=== PATIENT | male | born 1960 | race Caucasian/White ===

== ENCOUNTER 2016-07-15 13:09 | Emergency (ER) | payer MEDICAID ==
[~2016-07-15] VITALS: Ht 154.9 cm; Wt 80.3 kg
[2016-07-15 13:21] VITALS: BP 150/99
== END 2016-07-15 15:36 | disposition home or self-care (01) ==
LOC: ED 15:10
DX: G56.02 Carpal tunnel syndrome, left upper limb (principal); G62.9 Polyneuropathy, unspecified; M54.9 Dorsalgia, unspecified; G89.29 Other chronic pain
CPT/HCPCS: 99283

== ENCOUNTER 2017-06-18 21:03 | Emergency (ER) | payer MEDICAID ==
[~2017-06-18] VITALS: Ht 154.9 cm; Wt 82.1 kg
[2017-06-18 21:38] VITALS: BP 180/87
[2017-06-18] MEDS ORDERED: METHOCARBAMOL 750 MG TABLET ONE (22:25)
[2017-06-18] MEDS ORDERED: METHOCARBAMOL 750 MG TABLET PO ONE (22:30)
== END 2017-06-18 23:27 | disposition home or self-care (01) ==
LOC: ED 23:26
DX: M54.32 Sciatica, left side (principal)
CPT/HCPCS: 99283

== ENCOUNTER 2019-11-15 13:10 | Emergency (ER) | payer BC, MEDICAID ==
[~2019-11-15] VITALS: Ht 154.9 cm; Wt 82.9 kg
[2019-11-15] MEDS ORDERED: KETOROLAC 30 MG/1 ML ONE (13:56)
[2019-11-15 14:00] VITALS: BP 139/82
[2019-11-15] MEDS ORDERED: KETOROLAC 30 MG/1 ML IM ONE (14:00)
== END 2019-11-15 15:16 | disposition home or self-care (01) ==
LOC: ED 14:33
DX: M25.511 Pain in right shoulder (principal)
CPT/HCPCS: 96372; 99283; J1885

== ENCOUNTER 2019-12-08 12:32 | Emergency (ER) | payer BC ==
[~2019-12-08] VITALS: Ht 154.9 cm; Wt 86.9 kg
[2019-12-08 12:34] VITALS: BP 157/78
--- NOTE | 2019-12-08 13:10 | NUR ---
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
[2019-12-08] MEDS ORDERED: KETOROLAC 30 MG/1 ML ONE (13:27)
[2019-12-08] MEDS ORDERED: DIAZEPAM 5 MG TABLET ONE (13:27)
[2019-12-08] MEDS ORDERED: KETOROLAC 30 MG/1 ML IM ONE (13:30)
[2019-12-08] MEDS ORDERED: DIAZEPAM 5 MG TABLET PO ONE (13:30)
== END 2019-12-08 14:02 | disposition home or self-care (01) ==
LOC: ED 13:38
DX: G24.3 Spasmodic torticollis (principal); M25.512 Pain in left shoulder
CPT/HCPCS: 96372; 99283; J1885

== ENCOUNTER 2020-04-16 15:10 | Inpatient (IN) | payer BC ==
[~2020-04-16] VITALS: Ht 154.9 cm; Wt 80.6 kg
[2020-04-16 16:18] LABS: PLATELET (DIC) 325 x10^3/uL (130-400)
[2020-04-16 16:19] LABS: BASOPHILS % (AUTO) 0 % (0-1); EOSINOPHILS % (AUTO) 1 % (1-7); LYMPHOCYTES % (AUTO) 23 % (22-44); MEAN CORPUSCULAR HEMOGLOBIN 30.5 pg (27.5-34.5); MEAN CORPUSCULAR HGB CONC 35.5 g/dL (33.2-36.2); MEAN PLATELET VOLUME 7.3 fL (7.4-10.4); MONOCYTES % (AUTO) 11 % (2-9); NEUTROPHILS % (AUTO) 65 % (42-75); PLATELET COUNT 321 x10^3/uL (130-400); RED BLOOD COUNT 4.97 x10^6/uL (4.38-5.82); RED CELL DISTRIBUTION WIDTH 12.5 % (9.4-14.8)
[2020-04-16 16:27] LABS: MD NO
[2020-04-16 16:30] LABS: ALANINE AMINOTRANSFERASE 44 U/L (12-78); ANION GAP 10 mmol/L (5-15); CALCIUM 8.3 mg/dL (8.5-10.1); CHLORIDE 110 mmol/L (98-107); CREATININE 0.95 mg/dL (0.7-1.3); D-DIMER (DIC) 1.33 ug/mlFEU (0.00-0.52); PTT 28 Seconds (25-31)
[2020-04-16 16:36] LABS: ALKALINE PHOSPHATASE 73 U/L (45-117); BILIRUBIN,TOTAL 0.7 mg/dL (0.2-1.0); TOTAL PROTEIN 8.2 g/dL (6.4-8.2)
[2020-04-16 16:39] LABS: FIBRINOGEN > 713 mg/dL (200-340)
[2020-04-16] MEDS ORDERED: DEXAMETHASONE 4 MG/ML, 1ML ONE (17:13)
[2020-04-16] MEDS ORDERED: CEFTRIAXONE PMX 1GM/50ML 50 ML ONE (17:13)
[2020-04-16] MEDS ORDERED: DEXAMETHASONE 4 MG/ML, 1ML IVPush ONE (17:30)
[2020-04-16] MEDS ORDERED: CEFTRIAXONE PMX 1GM/50ML 50 ML IV ONE (17:30)
--- NOTE | 2020-04-16 17:53 | NUR ---
patient arrived with sob, weakness and cough. patient reports no sig medical history. states his sig other had covid, and he was quarantining. States he feels ok, but was 88% on room air. cough.
--- NOTE | 2020-04-16 17:56 | NUR ---
Alisia don in [facility] - 04/16/20 at 1803 by NILES called x2 for report. on hold x2
--- NOTE | 2020-04-16 18:03 | NUR ---
report given sbar camden
[2020-04-16] MEDS ORDERED: OMNIPAQUE 350 MG/ML, 75ML BOTTLE ONE (19:17)
[2020-04-16 19:48] VITALS: BP 119/77
[2020-04-17] MEDS ORDERED: DOCUSATE 100 MG CAPSULE PO PRN (00:30)
[2020-04-17] MEDS ORDERED: GUAIFENESIN/DM 200-20MG, 10ML UDC PO PRN (00:30)
[2020-04-17] MEDS ORDERED: ACETAMINOPHEN 325 MG TABLET PO PRN (00:30)
[2020-04-17] MEDS ORDERED: LABETALOL 5MG/ML, 20ML IVPush PRN (00:30)
[2020-04-17] MEDS ORDERED: MELATONIN 5 MG TABLET PO PRN (00:30)
[2020-04-17] MEDS ORDERED: LIDODERM 5% PATCH TD PRN (00:30)
[2020-04-17] MEDS: ENOXAPARIN 40 MG/0.4 ML SQ SCH (00:46)
[2020-04-17 01:15] VITALS: BP 114/54
[2020-04-17] MEDS ORDERED: PHARMACY MAY ADJ FOR RENAL FX MC PRN (02:00)
[2020-04-17] MEDS ORDERED: CEFTRIAXONE PMX 1GM/50ML 50 ML IV SCH (05:30)
[2020-04-17 05:55] LABS: ALBUMIN 2.7 g/dL (3.4-5.0); ANION GAP 8 mmol/L (5-15); CALCIUM 8.5 mg/dL (8.5-10.1); CHLORIDE 109 mmol/L (98-107)
[2020-04-17 06:05] LABS: ALANINE AMINOTRANSFERASE 44 U/L (12-78); ALKALINE PHOSPHATASE 69 U/L (45-117); BILIRUBIN,TOTAL 0.5 mg/dL (0.2-1.0); CREATINE KINASE, TOTAL 133 U/L (39-308); CREATININE 0.95 mg/dL (0.7-1.3); TOTAL PROTEIN 7.9 g/dL (6.4-8.2)
[2020-04-17 07:34] VITALS: BP 134/85
[2020-04-17] MEDS: DEXAMETHASONE 4 MG/ML, 1ML IVPush SCH (09:07)
[2020-04-17] MEDS: CHOLECALCIFEROL 5,000u TAB PO SCH (09:07)
[2020-04-17] MEDS: ZINC SULFATE 220 MG CAPSULE PO SCH (09:07)
[2020-04-17] MEDS: ASCORBIC ACID 500 MG TABLET PO SCH ×2 (09:08→21:04)
[2020-04-17 11:43] VITALS: BP 130/73
[2020-04-17] MEDS ORDERED: REMDESIVIR 200 MG in SODIUM CHLORIDE 0.9% 250 ML IVPB ONE (12:00)
[2020-04-17 13:03] VITALS: BP 120/65
[2020-04-17 19:28] VITALS: BP 134/75
[2020-04-18] MEDS: ENOXAPARIN 40 MG/0.4 ML SQ SCH (00:30)
[2020-04-18 01:07] VITALS: BP 114/75
[2020-04-18 04:57] LABS: HCT (SEDRATE) 39.7 % (39.2-51.8)
[2020-04-18 05:01] LABS: BASOPHILS % (AUTO) 1 % (0-1); EOSINOPHILS % (AUTO) 0 % (1-7); LYMPHOCYTES % (AUTO) 14 % (22-44); MEAN CORPUSCULAR HEMOGLOBIN 30.1 pg (27.5-34.5); MEAN CORPUSCULAR HGB CONC 34.7 g/dL (33.2-36.2); MEAN PLATELET VOLUME 7.8 fL (7.4-10.4); MONOCYTES % (AUTO) 9 % (2-9); NEUTROPHILS % (AUTO) 76 % (42-75); PLATELET COUNT 358 x10^3/uL (130-400); RED BLOOD COUNT 4.57 x10^6/uL (4.38-5.82); RED CELL DISTRIBUTION WIDTH 12.2 % (9.4-14.8)
[2020-04-18 05:02] LABS: MD NO
[2020-04-18 05:09] LABS: ALBUMIN 2.5 g/dL (3.4-5.0); ANION GAP 10 mmol/L (5-15); CALCIUM 8.3 mg/dL (8.5-10.1); CHLORIDE 110 mmol/L (98-107)
[2020-04-18 05:11] LABS: D-DIMER 1.44 ug/mlFEU (0.00-0.52); INTERNATIONAL NORMALIZED RATIO 1.01 (0.93-1.1); PROTHROMBIN TIME 10.8 Seconds (9.6-11.5)
[2020-04-18 05:20] LABS: ALANINE AMINOTRANSFERASE 57 U/L (12-78); ALKALINE PHOSPHATASE 65 U/L (45-117); BILIRUBIN,TOTAL 0.3 mg/dL (0.2-1.0); CREATINE KINASE, TOTAL 82 U/L (39-308); CREATININE 0.78 mg/dL (0.7-1.3); TOTAL PROTEIN 7.2 g/dL (6.4-8.2)
[2020-04-18 06:57] VITALS: BP 123/76
[2020-04-18] MEDS: CHOLECALCIFEROL 5,000u TAB PO SCH (07:42)
[2020-04-18] MEDS: ASCORBIC ACID 500 MG TABLET PO SCH ×2 (07:42→21:00)
[2020-04-18] MEDS: ZINC SULFATE 220 MG CAPSULE PO SCH (07:42)
[2020-04-18] MEDS: DEXAMETHASONE 4 MG/ML, 1ML IVPush SCH (07:42)
[2020-04-18] MEDS: REMDESIVIR 100 MG in SODIUM CHLORIDE 0.9% 250 ML IVPB SCH (12:39)
[2020-04-18 13:36] VITALS: BP 117/73
[2020-04-18 20:15] VITALS: BP 135/84
[2020-04-19] MEDS: ENOXAPARIN 40 MG/0.4 ML SQ SCH (00:30)
[2020-04-19 02:15] VITALS: BP 135/78
[2020-04-19 04:59] LABS: HCT (SEDRATE) 38.4 % (39.2-51.8)
[2020-04-19 05:11] LABS: ALBUMIN 2.7 g/dL (3.4-5.0); ANION GAP 4 mmol/L (5-15); CALCIUM 8.3 mg/dL (8.5-10.1); CHLORIDE 113 mmol/L (98-107)
[2020-04-19 05:26] LABS: ALANINE AMINOTRANSFERASE 67 U/L (12-78); ALKALINE PHOSPHATASE 57 U/L (45-117); BILIRUBIN,TOTAL 0.5 mg/dL (0.2-1.0); CREATINE KINASE, TOTAL 52 U/L (39-308); CREATININE 0.92 mg/dL (0.7-1.3); TOTAL PROTEIN 6.9 g/dL (6.4-8.2)
[2020-04-19 06:26] VITALS: BP 145/86
[2020-04-19] MEDS: CHOLECALCIFEROL 5,000u TAB PO SCH (07:52)
[2020-04-19] MEDS: DEXAMETHASONE 4 MG/ML, 1ML IVPush SCH (07:52)
[2020-04-19] MEDS: ASCORBIC ACID 500 MG TABLET PO SCH ×2 (07:52→20:06)
[2020-04-19] MEDS: ZINC SULFATE 220 MG CAPSULE PO SCH (07:52)
[2020-04-19] MEDS: ENOXAPARIN 30 MG/0.3 ML SQ SCH ×2 (09:45→20:06)
[2020-04-19 12:17] VITALS: BP 133/75
[2020-04-19] MEDS: REMDESIVIR 100 MG in SODIUM CHLORIDE 0.9% 250 ML IVPB SCH (12:40)
[2020-04-19 19:45] VITALS: BP 142/72
[2020-04-19] MEDS: THIAMINE 100MG TABLET PO SCH (20:06)
[2020-04-20 01:19] VITALS: BP 149/76
[2020-04-20 05:07] LABS: HCT (SEDRATE) 38.5 % (39.2-51.8)
[2020-04-20 05:22] LABS: ALBUMIN 2.5 g/dL (3.4-5.0); ANION GAP 7 mmol/L (5-15); CALCIUM 7.9 mg/dL (8.5-10.1); CHLORIDE 109 mmol/L (98-107)
[2020-04-20 05:29] LABS: D-DIMER 1.14 ug/mlFEU (0.00-0.52); INTERNATIONAL NORMALIZED RATIO 1.11 (0.93-1.1); PROTHROMBIN TIME 11.9 Seconds (9.6-11.5)
[2020-04-20 05:32] LABS: ALANINE AMINOTRANSFERASE 74 U/L (12-78); ALKALINE PHOSPHATASE 60 U/L (45-117); BILIRUBIN,TOTAL 0.3 mg/dL (0.2-1.0); CREATINE KINASE, TOTAL 40 U/L (39-308); CREATININE 0.73 mg/dL (0.7-1.3); TOTAL PROTEIN 6.9 g/dL (6.4-8.2)
[2020-04-20 07:23] VITALS: BP 138/76
[2020-04-20] MEDS: ZINC SULFATE 220 MG CAPSULE PO SCH (07:45)
[2020-04-20] MEDS: CHOLECALCIFEROL 5,000u TAB PO SCH (07:45)
[2020-04-20] MEDS: ENOXAPARIN 30 MG/0.3 ML SQ SCH ×2 (07:45→22:00)
[2020-04-20] MEDS: ASCORBIC ACID 500 MG TABLET PO SCH ×2 (07:45→22:00)
[2020-04-20] MEDS: DEXAMETHASONE 4 MG/ML, 1ML IVPush SCH (07:45)
[2020-04-20] MEDS: THIAMINE 100MG TABLET PO SCH ×2 (07:45→22:00)
[2020-04-20 12:57] VITALS: BP 129/77
[2020-04-20] MEDS: REMDESIVIR 100 MG in SODIUM CHLORIDE 0.9% 250 ML IVPB SCH (13:17)
[2020-04-20 19:32] VITALS: BP 135/72
[2020-04-21 00:37] VITALS: BP 173/90
[2020-04-21 05:22] LABS: HCT (SEDRATE) 39.3 % (39.2-51.8)
[2020-04-21 05:32] LABS: CHLORIDE 111 mmol/L (98-107)
[2020-04-21 05:41] LABS: ALANINE AMINOTRANSFERASE 68 U/L (12-78); ALBUMIN 2.7 g/dL (3.4-5.0); ALKALINE PHOSPHATASE 64 U/L (45-117); ANION GAP 9 mmol/L (5-15); BILIRUBIN,TOTAL 0.3 mg/dL (0.2-1.0); C-REACTIVE PROTEIN, QUANT 0.94 mg/dL (0.02-0.49); CALCIUM 8.6 mg/dL (8.5-10.1); CREATINE KINASE, TOTAL 34 U/L (39-308); CREATININE 0.71 mg/dL (0.7-1.3); TOTAL PROTEIN 6.7 g/dL (6.4-8.2)
[2020-04-21] MEDS ORDERED: MELA5TAB14 PO (07:24)
[2020-04-21] MEDS ORDERED: PANT40TA3 PO (07:24)
[2020-04-21] MEDS ORDERED: ACET325T26 PO (07:24)
[2020-04-21] MEDS ORDERED: THIA100T67 PO (07:24)
[2020-04-21] MEDS ORDERED: ZINC220C7 PO (07:24)
[2020-04-21] MEDS ORDERED: DEXA6TAB6 PO (07:24)
[2020-04-21] MEDS ORDERED: ASCO500T9 PO (07:24)
[2020-04-21] MEDS ORDERED: CHOL500045 PO (07:24)
[2020-04-21 07:40] VITALS: BP 133/75
[2020-04-21] MEDS: CHOLECALCIFEROL 5,000u TAB PO SCH (07:44)
[2020-04-21] MEDS: DEXAMETHASONE 4 MG/ML, 1ML IVPush SCH (07:44)
[2020-04-21] MEDS: ENOXAPARIN 30 MG/0.3 ML SQ SCH (07:44)
[2020-04-21] MEDS: THIAMINE 100MG TABLET PO SCH (07:45)
[2020-04-21] MEDS: ZINC SULFATE 220 MG CAPSULE PO SCH (07:45)
[2020-04-21] MEDS: ASCORBIC ACID 500 MG TABLET PO SCH (07:45)
[2020-04-21] MEDS: REMDESIVIR 100 MG in SODIUM CHLORIDE 0.9% 250 ML IVPB SCH (12:36)
[2020-04-21 12:45] VITALS: BP 120/74
== END 2020-04-21 17:25 | disposition home or self-care (01) | DRG 177 ==
LOC: ED 17:25 → EDIP 17:31 → ED 18:35 → 3N 19:10
PROVIDERS: ADMIT Family Medicine; ATTEND Internal Medicine
DX: U07.1 COVID-19 (principal); J96.01 Acute respiratory failure with hypoxia; J12.82 Pneumonia due to coronavirus disease 2019; J15.9 Unspecified bacterial pneumonia; M54.16 Radiculopathy, lumbar region; E66.9 Obesity, unspecified; Z68.33 Body mass index [BMI] 33.0-33.9, adult; Z88.8 Allergy status to other drugs, medicaments and biological substances
CPT/HCPCS: 36415; 71045; 71275; 80053; 82550; 82728; 83605; 83615; 83735; 84145; 85025; 85049; 85379; 85384; 85610; 85651; 85730; 86140; 87040; 93005; 96374; 96375; 99285; G0378; J0696; J1100; J1650; Q9967; J7050; U0003